=== PATIENT | male | born 1945 | race Caucasian/White ===

== ENCOUNTER 2017-07-26 17:42 | Emergency (ER) | payer OTHER ==
[~2017-07-26] VITALS: Ht 180.3 cm; Wt 94.3 kg
[~2017-07-26 17:42] MED LIST: MULT-845 PO; OMEG10007 PO
[2017-07-26 17:52] VITALS: Ht 180.3 cm; Wt 94.3 kg
[2017-07-26] MEDS ORDERED: KETOROLAC TROMETHAMINE 30 MG/ML VIAL IV STA (18:28)
[2017-07-26] MEDS ORDERED: SODIUM CHLORIDE 0.9% 500ML 500 ML IV STA (18:28)
[2017-07-26] MEDS ORDERED: DEXAMETHASONE **PF** INJ 10 MG/ML VIAL IV ONE (18:30)
--- NOTE | 2017-07-26 18:30 | EMERGENCY ROOM VISIT NOTE ---
History Report prepared by Sydni: Briana Andrade Under the Supervision of: Dr. Jean Marie Keller M.D. First contact with patient: 18:11 Chief Complaint: BACK PAIN Stated Complaint: BACK PAIN, RT SIDE TINGLING History of Present Illness The patient is a 71 year old male who presents to the Emergency Room with complaints of persistent right sided back pain that started yesterday. The patient rates his pain a 4/10 in severity. He notes sometimes the pain is so bad it radiates down his right leg. He reports he has a history of back pain. The patient states his right arm has been feeling tingly. He also has numbness in his left hand that has been persistent for the past couple of months. The patient denies any recent shoulder injuries. The patient works for a [employer]. He states yesterday he did a lot of work involving his arms and shoulders changing the motor out of a car. He also reports he did a lot of fishing yesterday and lifted a heavy anchor. He reports if he does not lift anything heavy, he never has any pain. The patient states he took 2 caplets of Ibuprofen this morning. The patient denies any neck pain, speech or vision changes, weakness in arms or legs, or problems walking. His bowel movements have been normal and he has been urinating normally. Source of History: patient Onset: yesterday Position: back (right) Symptom Intensity: 4/10 Timing: other (persistent) Associated Symptoms: No neck pain, No diarrhea, No urinary symptoms, No weakness Note: Denies vision changes or problems walking. Review of Systems See HPI for pertinent positives and negatives. A total of ten systems were reviewed and were otherwise negative. Past Medical & Surgical Kidney stones. Family History Diabetes mellitus Heart disease Social History Smoking Status: Never Smoker Alcohol Use: none Drug Use: none Marital Status: in relationship Occupation Status: retired Current/Historical Medications Scheduled Fish Oil (Flint-3), 3 CAP PO DAILY Multiple Vitamins W/ Minerals (Centrum Silver Adult 50+), 1 TAB PO DAILY Allergies Coded Allergies: No Known Allergies (Unverified , 04/22/15) Physical Exam Vital Signs Date Time Temp Pulse Resp B/P (MAP) Pulse Ox O2 Delivery O2 Flow Rate FiO2 07/26/17 22:05 36.8 66 22 133/81 96 07/26/17 20:47 75 22 145/89 95 Room Air 4/22/18 19:41 63 07/26/17 19:03 63 22 164/108 95 Room Air 07/26/17 18:45 95 Room Air 07/26/17 17:52 36.8 75 18 170/90 97 Room Air Physical Exam GENERAL: Awake, alert, well-appearing, in no distress HENT: Normocephalic, atraumatic. Dry mucus membranes. EYES: Normal conjunctiva. Sclera non-icteric. NECK: Supple. No nuchal rigidity. FROM. No JVD. RESPIRATORY: Clear to auscultation. CARDIAC: Regular rate, normal rhythm. Extremities warm and well perfused. Pulses equal. ABDOMEN: Soft, non-distended. No tenderness to palpation. No rebound or guarding. No masses. RECTAL: Deferred. MUSCULOSKELETAL: Chest examination reveals no tenderness. The back is symmetrical on inspection without obvious abnormality. There is no CVA tenderness to palpation. No joint edema. LOWER EXTREMITIES: Calves are equal size bilaterally and non-tender. No edema. No discoloration. 5 out of 5 strength and SILT in all extremities. +straight leg raise on right. NEURO: Normal sensorium. No sensory or motor deficits noted. Normal cerebellar function with [id number], alternating palms, [id number] SKIN: No rash or jaundice noted. Medical Decision & Procedures ER Provider Diagnostic Interpretation: Radiology results as stated below per my review and radiologist interpretation: CHEST ONE VIEW PORTABLE CLINICAL HISTORY: CHEST PAIN dyspnea COMPARISON STUDY: No previous studies for comparison. FINDINGS: The bones soft tissues and hemidiaphragms are normal. The cardiomediastinal silhouette is normal. The lungs are clear. The pulmonary vasculature is normal. IMPRESSION: Negative chest. The above report was generated using voice recognition software. It may contain grammatical, syntax or spelling errors. Electronically signed by: Eric Bess M.D. 07/26/2017 6:46 PM Dictated Date/Time: 07/26/2017 6:46 PM BRAIN WITHOUT CONTRAST HISTORY: Neuropathy Right sided numbness TECHNIQUE: Multiplanar multisequence MRI of the brain was performed without the use of contrast. COMPARISON STUDY: None. FINDINGS: Diffusion-weighted images show no evidence for an acute ischemic process. The ventricular system is midline. Signal characteristics the cerebellar as well as cerebral hemispheres are unremarkable. There are several small foci of increased signal within the periventricular and deep white matter regions. This configuration is suggestive of chronic small vessel change. IMPRESSION: Mild chronic small vessel change in the periventricular deep white matter regions. No acute process. The above report was generated using voice recognition software. It may contain grammatical, syntax or spelling errors. Electronically signed by: Eric Bess M.D. 07/26/2017 8:41 PM Dictated Date/Time: 07/26/2017 8:39 PM Laboratory Results 07/26/17 18:40 Red Blood Count 4.92, Mean Corpuscular Volume 87.8, Mean Corpuscular Hemoglobin 29.7, Mean Corpuscular Hemoglobin Concent 33.8, Mean Platelet Volume 10.2, Neutrophils (%) (Auto) 42.5, Lymphocytes (%) (Auto) 39.1, Monocytes (%) (Auto) 13.6, Eosinophils (%) (Auto) 4.5, Basophils (%) (Auto) 0.3, Neutrophils # (Auto ) 2.74, Lymphocytes # (Auto) 2.52, Monocytes # (Auto) 0.88, Eosinophils # (Auto ) 0.29, Basophils # (Auto) 0.02 07/26/17 18:40 Test 07/26/17 18:40 White Blood Count 6.45 K/uL (4.8-10.8) Red Blood Count 4.92 M/uL (4.7-6.1) Hemoglobin 14.6 g/dL (14.0-18.0) Hematocrit 43.2 % (42-52) Mean Corpuscular Volume 87.8 fL (80-100) Mean Corpuscular Hemoglobin 29.7 pg (25-34) Mean Corpuscular Hemoglobin Concent 33.8 g/dl (32-36) Platelet Count 253 K/uL (130-400) Mean Platelet Volume 10.2 fL (7.4-10.4) Neutrophils (%) (Auto) 42.5 % Lymphocytes (%) (Auto) 39.1 % Monocytes (%) (Auto) 13.6 % Eosinophils (%) (Auto) 4.5 % Basophils (%) (Auto) 0.3 % Neutrophils # (Auto) 2.74 K/uL (1.4-6.5) Lymphocytes # (Auto) 2.52 K/uL (1.2-3.4) Monocytes # (Auto) 0.88 K/uL (0.11-0.59) Eosinophils # (Auto) 0.29 K/uL (0-0.5) Basophils # (Auto) 0.02 K/uL (0-0.2) RDW Standard Deviation 46.3 fL (36.4-46.3) RDW Coefficient of Variation 14.3 % (11.5-14.5) Immature Granulocyte % (Auto) 0.0 % Immature Granulocyte # (Auto) 0.00 K/uL (0.00-0.02) Anion Gap 6.0 mmol/L (3-11) Est Creatinine Clear Calc Drug Dose 65.8 ml/min Estimated GFR () 70.3 Estimated GFR (Non- 60.7 BUN/Creatinine Ratio 15.8 (10-20) Calcium Level 8.5 mg/dl (8.5-10.1) Magnesium Level 2.5 mg/dl (1.8-2.4) Total Bilirubin 0.5 mg/dl (0.2-1) Direct Bilirubin 0.1 mg/dl (0-0.2) Aspartate Amino Transf (AST/SGOT) 30 U/L (15-37) Alanine Aminotransferase (ALT/SGPT) 56 U/L (12-78) Alkaline Phosphatase 75 U/L (45-117) Troponin I < 0.015 ng/ml (0-0.045) Total Protein 7.6 gm/dl (6.4-8.2) Albumin 3.8 gm/dl (3.4-5.0) Lipase 145 U/L (73-393) Chemistry Specimen Hemolysis Laboratory results reviewed by me Medications Administered Medications (Trade) Dose Ordered Sig/Lg Route Start Time Stop Time Status Last Admin Dose Admin Sodium Chloride 500 ml @ 999 mls/hr Q31M STAT IV 07/26/17 18:28 07/26/17 18:58 DC 07/26/17 18:28 999 MLS/HR Ketorolac Tromethamine (Toradol Inj) 15 mg NOW STAT IV 07/26/17 18:28 07/26/17 18:31 DC 07/26/17 18:28 15 MG Dexamethasone Sodium Phosphate (Dexamethasone Inj Pf) 10 mg NOW ONCE IV 07/26/17 18:30 07/26/17 18:31 DC 07/26/17 18:30 10 MG ECG Per My Interpretation Indication: weakness Rate (beats per minute): 68 Rhythm: sinus rhythm Findings: 1st degree AV block, no acute ischemic change, no ectopy ED Course 1810: The patient was evaluated in room A10. A complete history and physical exam was performed. 2154: I reevaluated the patient. Discussed results and discharge instructions: He verbalized understanding and agreement. The patient is ready for discharge. Medical Decision I reviewed the patient's past medical history, medications, and the nursing notes as described above. Differential diagnosis: Etiologies such as metabolic, infection, hypo/hyperglycemia, electrolyte abnormalities, cardiac sources, intracerebral event, toxicologic, neurologic, as well as others were entertained. The patient is a 71 y/o gentleman with a pmhx of sciatica and HTN who presents to the emergency department with low back pain and numbness that goes down his right leg in addition to a constant numbness of his right arm per HPI. On arrival the patient is well appearing in NAD. On exam the patient has 5/5 strength and SILT x 4 ext. Normal cerebellar function with [id number], alternating palms, [id number]. Labs unremarkable. CXR negative. MRI brain unremarkable. Given the patient's sx occur in the setting of increased physical activity, most likely related to muscular strain/radiculopathy. Patient with improved sx after Toradol/Dexamethasone further supports this. Findings and plan for follow-up reviewed with patient. Patient agreeable and d/c'd per discharge instructions. Medication Reconcilliation Current Medication List: was personally reviewed by me Blood Pressure Screening Patient's blood pressure: Elevated blood pressure Blood pressure disposition: Elevated BP felt to be situational Impression Primary Impression: Radiculopathy, cervical Additional Impression: Lumbar radiculopathy Scribe Attestation The scribe's documentation has been prepared under my direction and personally reviewed by me in its entirety. I confirm that the note above accurately reflects all work, treatment, procedures, and medical decision making performed by me. Departure Information Dispostion Home / Self-Care Referrals No Doctor, Assigned (PCP) Patient Instructions ED Cervical Radiculopathy, Lumbar Radiculopathy, [facility] Additional Instructions Please follow up with your primary care physician in the next 1-3 days for re- evaluation. Your symptoms are likely related to nerve impingement/inflammation and muscular strain. Otherwise, your exam, EKG, chest xray, lab results, and MRI did not show signs of an emergent condition at this time. Acetaminophen or ibuprofen for pain and fevers as needed. Drink plenty of fluids to ensure hydration. Return to the emergency department for worsening symptoms as described in the accompanying instructions. Problem Qualifiers
[2017-07-26 18:45] VITALS: O2SAT 95
--- NOTE | 2017-07-26 18:48 | DIAGNOSTIC IMAGING REPORT ---
CHEST ONE VIEW PORTABLE CLINICAL HISTORY: CHEST PAIN dyspnea COMPARISON STUDY: No previous studies for comparison. FINDINGS: The bones soft tissues and hemidiaphragms are normal. The cardiomediastinal silhouette is normal. The lungs are clear. The pulmonary vasculature is normal. IMPRESSION: Negative chest. The above report was generated using voice recognition software. It may contain grammatical, syntax or spelling errors. Electronically signed by: Eric Bess M.D. 07/26/2017 6:46 PM Dictated Date/Time: 07/26/2017 6:46 PM
[2017-07-26 18:57] LABS: BASO % 0.3 %; BASO ABS # 0.02 K/uL (0-0.2); EOS % 4.5 %; EOS ABS # 0.29 K/uL (0-0.5); HEMATOCRIT 43.2 % (42-52); HEMOGLOBIN 14.6 g/dL (14.0-18.0); LYMPH % 39.1 %; LYMPH ABS # 2.52 K/uL (1.2-3.4); MEAN CELL VOLUME 87.8 fL (80-100); MEAN CORPUSCULAR HEMOGLOBIN 29.7 pg (25-34); MEAN CORPUSCULAR HGB CONC 33.8 g/dl (32-36); MEAN PLATELET VOLUME 10.2 fL (7.4-10.4); MONO % 13.6 %; MONO ABS # 0.88 K/uL (0.11-0.59); NEUT % 42.5 %; NEUT ABS # 2.74 K/uL (1.4-6.5); PLATELET COUNT 253 K/uL (130-400); RED CELL DISTRIBUTION WIDTH CV 14.3 % (11.5-14.5); RED CELL DISTRIBUTION WIDTH SD 46.3 fL (36.4-46.3); WHITE BLOOD COUNT 6.45 K/uL (4.8-10.8)
[2017-07-26 19:25] LABS: ALBUMIN 3.8 gm/dl (3.4-5.0); ALKALINE PHOSPHATASE 75 U/L (45-117); ALT/SGPT 56 U/L (12-78); BLOOD UREA NITROGEN 19 mg/dl (7-18); CALCIUM 8.5 mg/dl (8.5-10.1); CARBON DIOXIDE 28 mmol/L (21-32); CREATININE 1.19 mg/dl (0.60-1.40); GLUCOSE 106 mg/dl (70-99); POTASSIUM 3.9 mmol/L (3.5-5.1); SODIUM 142 mmol/L (136-145); TOTAL PROTEIN 7.6 gm/dl (6.4-8.2)
[2017-07-26 19:42] LABS: AST/SGOT 30 U/L (15-37)
[2017-07-26 19:47] LABS: LIPASE 145 U/L (73-393)
--- NOTE | 2017-07-26 20:42 | DIAGNOSTIC IMAGING REPORT ---
BRAIN WITHOUT CONTRAST HISTORY: Neuropathy Right sided numbness TECHNIQUE: Multiplanar multisequence MRI of the brain was performed without the use of contrast. COMPARISON STUDY: None. FINDINGS: Diffusion-weighted images show no evidence for an acute ischemic process. The ventricular system is midline. Signal characteristics the cerebellar as well as cerebral hemispheres are unremarkable. There are several small foci of increased signal within the periventricular and deep white matter regions. This configuration is suggestive of chronic small vessel change. IMPRESSION: Mild chronic small vessel change in the periventricular deep white matter regions. No acute process. The above report was generated using voice recognition software. It may contain grammatical, syntax or spelling errors. Electronically signed by: Eric Bess M.D. 07/26/2017 8:41 PM Dictated Date/Time: 07/26/2017 8:39 PM
[2017-07-26 22:05] VITALS: BP 133/81; PULSE 66; TEMP 36.8; O2SAT 96
== END 2017-07-26 22:06 | disposition home or self-care (01) ==
LOC: C.EDB 17:46 → C.EDA 22:06
DX: M54.12 Radiculopathy, cervical region (principal); M54.16 Radiculopathy, lumbar region; I44.0 Atrioventricular block, first degree; Z87.39 Personal history of other diseases of the musculoskeletal system and connective tissue; I10 Essential (primary) hypertension